=== PATIENT | male | born 2000 | race Caucasian/White ===

== ENCOUNTER 2019-10-06 08:38 | Emergency (ER) | payer SELFPAY ==
[~2019-10-06] VITALS: Ht 182.9 cm; Wt 88.0 kg
[2019-10-06] MEDS ORDERED: IV NORMAL SALINE 1,000ML 1,000 ML IV ONE ×2 (09:00→09:45)
[2019-10-06 09:25] LABS: CALCIUM 9.2 mg/dL (8.5-10.1); CREATININE 2.6 mg/dL (0.7-1.3); GFR 31.6
[2019-10-06 09:26] LABS: POTASSIUM 4.8 mmol/L (3.5-5.1)
[2019-10-06] MEDS ORDERED: MIDAZOLAM HCL PF 5 MG/5 ML VIAL. ONE (09:26)
[2019-10-06 09:31] LABS: ACETAMIN 2.8 mcg/mL (10-30); ALBUMIN 2.8 g/dL (3.4-5.0); DIRECT BILIRUBIN 0.1 mg/dL (0.0-0.2); MAGNESIUM 2.9 mg/dL (1.8-2.4); SALIC < 2.8 mg/dL (2.8-20.0); TOTAL BILIRUBIN 0.2 mg/dL (0.2-1.0)
[2019-10-06] MEDS ORDERED: PROPOFOL 100 ML IV ONE (09:33)
[2019-10-06 09:36] LABS: AMPHETAMINE/METHAMPHETAMINE NEG (NEG); BARBITURATES NEG (NEG); BENZODIAZEPINES POS (NEG); CANNABINOIDS POS (NEG); COCAINE POS (NEG); METHADONE NEG (NEG); OPIATES NEG (NEG); PHENCYCLIDINE NEG (NEG)
[2019-10-06 09:37] LABS: BASO # 0.1 x10^3/uL (0.0-0.2); BASO % 0 % (0-3); EOS % 0 % (0-3); HEMATOCRIT 55.1 % (39.0-53.0); HEMOGLOBIN 17.4 g/dL (13.0-17.5); LYMPH # 3.7 x10^3/uL (1.0-4.8); LYMPH % 27 % (24-48); MEAN CORPUSCULAR HEMOGLOBIN 30 pg (25-35); MEAN CORPUSCULAR HGB CONC 32 g/dL (31-37); MEAN CORPUSCULAR VOLUME 96 fL (79-100); MONO # 1.4 x10^3/uL (0.0-1.1); MONO % 11 % (0-9); NEUT # 8.4 x10^3uL (1.8-7.7); NEUT % 62 % (31-73); PLATELET COUNT 318 x10^3/uL (140-400); RED BLOOD COUNT 5.73 x10^6/uL (4.30-5.70); WHITE BLOOD COUNT 13.6 x10^3/uL (4.0-11.0)
--- NOTE | 2019-10-06 09:51 | PHYS DOC ---
General Adult EDM: Chief Complaint: CPR/FULL ARREST HPI: HPI: Patient is a 19-year-old male who was brought here by EMS from a local residence due to report of drug overdose. It was reported that patient may be overdosed with Xanax. His friend who was partying with him called the police to report of drug overdose, EMS responded, they came to the scene and found 1 person pronounced at the scene, patient was found to be unresponsive however he was still breathing laborously with a palpable pulse. Patient was given 2 mg of Narcan by EMS but he was not responsive. EMS was managed to bag him with oxygen and brought him here for evaluation. EMS report that on route here patient went into PEA, no pulses. EMS managed to put on IV in him and started CPR. EMS brought patient to room with CPR in progress, patient upper torso covered with vomitus, food particles and coffee-ground emesis coming out from the mouth and nose. Patient was in PEA, no pulses upon arrival. Review of Systems: Review of Systems: Not able to obtain because of unresponsiveness Heart Score: Risk Factors: Risk Factors: DM, Current or recent (<one month) smoker, HTN, HLP, family history of CAD, obesity. Risk Scores: Score 0 - 3: 2.5% MACE over next 6 weeks - Discharge Home Score 4 - 6: 20.3% MACE over next 6 weeks - Admit for Clinical Observation Score 7 - 10: 72.7% MACE over next 6 weeks - Early Invasive Strategies Current Medications: Current Meds: Current Medications Medications (Trade) Dose Ordered Sig/Karel Start Time Stop Time Status Last Admin Dose Admin Fentanyl Citrate (Fentanyl 2ml Vial) 100 mcg STK-MED ONCE 10/06/19 09:26 10/06/19 09:26 DC Midazolam HCl (Versed) 5 mg STK-MED ONCE 10/06/19 09:26 10/06/19 09:26 DC Propofol 100 ml @ As Directed STK-MED ONCE 10/06/19 09:33 10/06/19 09:33 DC Sodium Chloride 1,000 ml @ 1,000 mls/hr 1X ONCE 10/06/19 09:45 10/06/19 10:44 Allergies: Allergies: Allergies Coded Allergies Type Severity Reaction Last Updated Verified Unable to Assess 10/06/19 No Physical Exam: PE: Constitutional: Well developed, well nourished, in severe distress, no responsive to verbal or painful stimuli. HENT: Normocephalic, atraumatic, bilateral external ears normal, large amount of food particles and aspiration coming out of mouth and nose, oral airway was full of coffee ground material. Eyes: pupils were 7 mm bilaterally, nonreactive, conjunctiva normal, no discharge. [] Neck: no mass, trachea midline, no stridor. [] Cardiovascular:No pulse, in PEA rhythm. Lungs & Thorax: NO SPONTANEOUS RESPIRATION, RESPIRATORY FAILURE. Abdomen:NO DISTENTION, NO MASS, Skin:COLD, PALE Back: NO EVIDENCE OF INJURY. Extremities NO EVIDENCE OF INJURY. Neurologic: COMATOSE, NONRESPONSIVE TO PAIN OR VERBAL STIMULI Psychologic: NOT ABLE TO EVALUATE DUE TO CONDITION. Current Patient Data: Labs: Laboratory Tests Test 10/06/19 09:00 10/06/19 09:21 White Blood Count 13.6 x10^3/uL (4.0-11.0) H Red Blood Count 5.73 x10^6/uL (4.30-5.70) H Hemoglobin 17.4 g/dL (13.0-17.5) Hematocrit 55.1 % (39.0-53.0) H Mean Corpuscular Volume 96 fL (79-100) Mean Corpuscular Hemoglobin 30 pg (25-35) Mean Corpuscular Hemoglobin Concent 32 g/dL (31-37) Red Cell Distribution Width 15.0 % (11.5-14.5) H Platelet Count 318 x10^3/uL (140-400) Neutrophils (%) (Auto) 62 % (31-73) Lymphocytes (%) (Auto) 27 % (24-48) Monocytes (%) (Auto) 11 % (0-9) H Eosinophils (%) (Auto) 0 % (0-3) Basophils (%) (Auto) 0 % (0-3) Neutrophils # (Auto) 8.4 x10^3uL (1.8-7.7) H Lymphocytes # (Auto) 3.7 x10^3/uL (1.0-4.8) Monocytes # (Auto) 1.4 x10^3/uL (0.0-1.1) H Eosinophils # (Auto) 0.0 x10^3/uL (0.0-0.7) Basophils # (Auto) 0.1 x10^3/uL (0.0-0.2) Platelet Estimate Pending Prothrombin Time 13.8 SEC (9.4-11.4) H Prothrombin Time INR 1.3 (0.9-1.1) H Activated Partial Thromboplast Time 39 SEC (23-33) H Sodium Level 152 mmol/L (136-145) H Potassium Level 4.8 mmol/L (3.5-5.1) Chloride Level 109 mmol/L (98-107) H Carbon Dioxide Level 28 mmol/L (21-32) Anion Gap 15 (6-14) H Blood Urea Nitrogen 16 mg/dL (8-26) Creatinine 2.6 mg/dL (0.7-1.3) H Estimated GFR (Cockcroft-Gault) 31.6 Glucose Level 89 mg/dL (70-99) Calcium Level 9.2 mg/dL (8.5-10.1) Magnesium Level 2.9 mg/dL (1.8-2.4) H Total Bilirubin 0.2 mg/dL (0.2-1.0) Direct Bilirubin 0.1 mg/dL (0.0-0.2) Aspartate Amino Transferase (AST) 39 U/L (15-37) H Alanine Aminotransferase (ALT) 41 U/L (16-63) Alkaline Phosphatase 109 U/L (46-116) Total Protein 5.0 g/dL (6.4-8.2) L Albumin 2.8 g/dL (3.4-5.0) L Salicylates Level < 2.8 mg/dL (2.8-20.0) L Salicylate Last Dose Date Unknown Salicylate Last Dose Time Unknown Acetaminophen Level 2.8 mcg/mL (10-30) L Acetaminophen Last Dose Date Unknown Acetaminophen Last Dose Time Unknown Urine Opiates Screen Neg (NEG) Urine Methadone Screen Neg (NEG) Urine Barbiturates Neg (NEG) Urine Phencyclidine Screen Neg (NEG) Urine Amphetamine/Methamphetamine Neg (NEG) Urine Benzodiazepines Screen Pos (NEG) Urine Cocaine Screen Pos (NEG) Urine Cannabinoids Screen Pos (NEG) Urine Ethyl Alcohol Neg (NEG) EKG: EKG: First EKG was done at 916 with heart rate of 112 beats per minute , no ST segment elevation, wide-complex tachycardia , Second EKG was done at 953 with heart rate of 97 bpm, STEMI, sinus rhythm, nonspecific ST abnormality. Radiology/Procedures: Radiology/Procedures: [address] [id number] IMAGING REPORT Signed PATIENT: AMY HAZEL ACCOUNT: [id number] : 2000 LOCATION: ER AGE: 19 SEX: M EXAM STATUS: REG ER ORD. PHYSICIAN: HANNA PULIDO DO REASON: CPR PROCEDURE: PORTABLE CHEST 1V PORTABLE CHEST 1V Clinical indications: CPR. COMPARISON: None Available. Findings: ET tube is in place and the tip is situated 4 cm above the level of the judit. NG tube is in place and the tip is seen at the GE junction. There is moderate gaseous distention of the stomach. Moderate to severe bilateral perihilar pulmonary edema or lung infiltrates are seen. No pleural effusion or pneumothorax is evident. Heart size and mediastinum and pulmonary vasculature are unremarkable. IMPRESSION: Moderate to severe bilateral perihilar pulmonary edema or lung infiltrates. NG tube tip is seen at the level of the GE junction. It may be advanced another 12 cm. Moderate gaseous distention of the stomach. Electronically signed by: Aishwarya Dee MD (10/06/2019 10:12 AM) [id number] DICTATED AND SIGNED BY: AISHWARYA DEE MD DATE: 10/06/19 1012 CC: PCP,NO; HANNA PULIDO DO ~ INTUBATION: Indication: RESPIRATORY FAILURE Consent: NONE, emergent. Medications Used: NONE Procedure: The patient was placed in the SUPINE POSITION, CHIN LIFT. Cricoid pressure applied Intubation was performed by this physician, cord was visualized, ET tube # 7.5 passed through cord, CORD VISUALIZATION, ET tube was secured 22 at lip. Initial confirmation of placement included END TIDAL CO2 DETECTOR, YELLOW COLOR CHANGED, A chest x-ray to verify correct placement of the tube WAS DONE, ET tube in good position. ASPIRATION NOTED ON CHEST XRAY BILATERALLY. The patient tolerated the procedure Complications:none Of note, patient was brought in by EMS, food particles, aspirated, there was coffee ground fluid mixed with food particles in oral airway, leaking via noses, suction was done. Patient was intubated at 0845 am. CENTRAL LINE PLACEMENT: Indication: low blood pressure, IV access, post cardiac arrest Consent: none, emergent Procedure: The patient was positioned appropriately and the skin over the RIGHT FEMORAL AREA was PREPPED WITH CHLORHEXIDINE. Local anesthesia was NOT USED BECAUSE PATIENT WAS INTUBATED, ON VENT, NONRESPONSIVE. A large bore needle was used to identify the RIGHT FEMORAL vein. A guide wire was then inserted into the vein through the needle. A tripple lumen CVL was then inserted into the vessel over the guide wire using the Seldinger technique. All ports showed good, free flowing blood return and were flushed with saline solution. The catheter was then securely fastened to the skin and covered with a sterile dressing. The patient tolerated the procedure tolerated. Complications: none Critical care time was [60] minutes exclusive of procedures. Course & Med Decision Making: Course & Med Decision Making Pertinent Labs and Imaging studies reviewed. (See chart for details) Patient is a 19-year-old male who was brought here by EMS from a local residence due to report of drug overdose. It was reported that patient may be overdosed with Xanax. His friend who was partying with him called the police to report of drug overdose, EMS responded, they came to the scene and found 1 person pronounced at the scene, patient was found to be unresponsive however he was still breathing laborously with a palpable pulse. Patient was given 2 mg of Narcan by EMS but he was not responsive. EMS was managed to bag him with oxygen and brought him here for evaluation. EMS report that on route here patient went into PEA, no pulses. EMS managed to put on IV in him and started CPR. EMS brought patient to room with CPR in progress, patient upper torso covered with vomitus, food particles and coffee-ground emesis coming out from the mouth and nose. Patient was in PEA, no pulses upon arrival. ACLS protocol was carried out, patient was resuscitated by ED staffs when he arrived to ER at 835. Suction was done to suck aspiration out of airway. Patient was then intubated by this physician at 845. Patient was given multiple doses of epinephrine, sodium bicarb, calcium gluconate in ED. ROSC was achieved at 8:56 AM. Patient was tachycardic, wide-complex QRS. He was hypotensive. Patient was given 2.5 L normal saline IV bolus, a central venous catheter was placed in the right femoral area.. Initial pupils was about 7 mm bilaterally, nonreactive. After resuscitation with return of circulation, his pupils were 3 mm reactive. Dragon Disclaimer: Dragon Disclaimer: This electronic medical record was generated, in whole or in part, using a voice recognition dictation system. Departure Departure: Impression: Primary Impression: Respiratory failure Additional Impressions: Cardiac arrest Drug overdoses Substance abuse Renal failure Aspiration into lower respiratory tract Disposition: 02 XFER [facility] HOSP (transferred to [facility], accepted by Dr. Henley) Condition: GUARDED Referrals: PCP,SHEKHAR (PCP) HANNA PULIDO DO October 06, 2019 09:51
[2019-10-06 09:53] LABS: BILIRUBIN,URINE NEG (NEG); CLARITY,URINE CLOUDY; COLOR,URINE YELLOW; GLUCOSE,URINE 500 mg/dL (NEG)
[2019-10-06 09:54] LABS: BACTERIA,URINE FEW /HPF (0-FEW); GRANULAR CASTS,URINE FEW /HPF; HYALINE CASTS, URINE FEW /HPF; NITRITE,URINE NEG (NEG); SPERM,URINE PRESENT /HPF; SQUAMOUS EPITHELIAL CELL,UR FEW /LPF; UROBILINOGEN,URINE 0.2 mg/dL (0.2 mg/dL)
[2019-10-06] MEDS ORDERED: PIPERACILLIN/TAZOBACTAM 3.375 GM in IV NORMAL SALINE 50ML 50 ML IV ONE (10:00)
[2019-10-06] MEDS ORDERED: SODIUM BICARB ADULT 8.4% 50 MEQ/50 ML DISP.SYRIN. ONE (10:00)
[2019-10-06] MEDS ORDERED: EPINEPHrine SYRINGE 1 MG/10 ML SYRINGE ONE (10:00)
[2019-10-06] MEDS ORDERED: CALCIUM CHLORIDE 1,000 MG/10 ML VIAL IV ONE (10:00)
[2019-10-06] MEDS ORDERED: IV NORMAL SALINE 50ML 50 ML ONE (10:10)
[2019-10-06] MEDS ORDERED: PIPERACILLIN/TAZOBACTAM 3.375 GM VIAL IV ONE (10:10)
[2019-10-06 10:12] LABS: BGAS PH 6.82 (7.35-7.46)
[2019-10-06] MEDS ORDERED: ROCURONIUM 50 MG/5 ML VIAL. IV ONE (10:15)
--- NOTE | 2019-10-06 10:15 | RAD ---
PORTABLE CHEST 1V Clinical indications: CPR. COMPARISON: None Available. Findings: ET tube is in place and the tip is situated 4 cm above the level of the judit. NG tube is in place and the tip is seen at the GE junction. There is moderate gaseous distention of the stomach. Moderate to severe bilateral perihilar pulmonary edema or lung infiltrates are seen. No pleural effusion or pneumothorax is evident. Heart size and mediastinum and pulmonary vasculature are unremarkable. IMPRESSION: Moderate to severe bilateral perihilar pulmonary edema or lung infiltrates. NG tube tip is seen at the level of the GE junction. It may be advanced another 12 cm. Moderate gaseous distention of the stomach. Electronically signed by: Martinez Dee MD (10/06/2019 10:12 AM) [id number]
[2019-10-06 10:29] LABS: BGAS PH 7.13 (7.35-7.46)
--- NOTE | 2019-10-06 10:33 | EKG ---
[address] [address] Test Date: 2019-10-06 Test Time: 09:53:38 Pat Name: AMY HAZEL Department: Room: Gender: M [employer] Worker: RICARDO : 2000 Requested By: HANNA PULIDO Order Number: [id number] Reading MD: Jeramie Godwin Measurements Intervals [place] Rate: 97 P: 66 [place]: 146 QRS: 69 QRSD: 122 T: 217 QT: 386 QTc: 495 Interpretive Statements SINUS RHYTHM ST & T ABNORMALITY, CONSIDER INFERIOR ISCHEMIA OR LEFT VENTRICULAR STRAIN ABNORMAL ECG RI6.02 No previous ECG available for comparison Electronically Signed On 10-08-2019 8:47:50 CDT by Jeramie Godwin
--- NOTE | 2019-10-06 10:33 | EKG ---
[address] [address] Test Date: 2019-10-06 Test Time: 09:16:33 Pat Name: AMY HAZEL Department: Room: Gender: M Radiology Nurse: RICARDO : 2000 Requested By: HANNA PULIDO Order Number: [id number] Reading MD: Jeramie Godwin Measurements Intervals [place] Rate: 112 P: [place]: QRS: 28 QRSD: 136 T: 203 QT: 370 QTc: 507 Interpretive Statements ATIAL FIBRILLATION VENTRICULAR PREMATURE COMPLEX(ES) NON SPECIFIC INTRAVENTRICULAR BLOCK ABNORMAL ECG RI6.02 No previous ECG available for comparison Electronically Signed On 10-08-2019 8:47:41 CDT by Jeramie Godwin
[2019-10-06 10:35] LABS: % ATYL 2 % (0-0); % BANDS 16 % (0-9); % LYMPHS 34 % (24-48); % MONOS 5 % (0-10); % SEGS 43 % (35-66); PLATELET CLUMP PRESENT; PLT ESTIMATE ADEQUATE (ADEQUATE)
[2019-10-06 10:36] LABS: TOXIC GRANULATION PRESENT; TOXIC VACUOLATION PRESENT
[2019-10-06] MEDS ORDERED: VECURONIUM 10 MG VIAL. IV ONE (10:43)
[2019-10-06 11:00] VITALS: BP 101/69
== END 2019-10-06 11:05 | disposition short-term general hospital (02) ==
LOC: EEVIPCON 08:38 → ER 08:38
DX: T17.820A Food in other parts of respiratory tract causing asphyxiation, initial encounter (principal); J96.90 Respiratory failure, unspecified, unspecified whether with hypoxia or hypercapnia; I46.9 Cardiac arrest, cause unspecified; N19 Unspecified kidney failure; F19.10 Other psychoactive substance abuse, uncomplicated; X58.XXXA Exposure to other specified factors, initial encounter; Y93.89 Activity, other specified; Y92.89 Other specified places as the place of occurrence of the external cause; Y99.8 Other external cause status
CPT/HCPCS: 31500; 36415; 36556; 36600; 51702; 71045; 80048; 80076; 80307; 80329; 81001; 82550; 82803; 83735; 84484; 85007; 85025; 85610; 85730; 92950; 93005; 96360; 96361; 96365; 99291; G0480; J0171; J2543; 94002; J7030